=== PATIENT | female | born 1970 | race Caucasian/White ===

== ENCOUNTER 2017-11-13 12:45 | Emergency (ER) | payer MEDICAID, SELFPAY ==
[2017-11-13 12:46] VITALS: BP 159/103; PULSE 72; RESP 18; TEMP 36.9; O2SAT 99; BMI 27.4
--- NOTE | 2017-11-13 12:51 | [facility].EDWEAK ---
ED Disposition Clinical Impression: Radiculopathy of cervical spine Disposition: Home, Self-Care Condition on Discharge: Good Instructions: DI for Acute Pain -- Adult Additional Instructions: Naproxen, see Reny this week for follow up Prescriptions: Naproxen [EC-Naprosyn] 500 mg PO BID PRN #20 tablet.dr SOLORZANO Reason: Pain Per Pt (Scientific Artist Use Only) Referrals: Provider,Referral, MD [Primary Care Provider] - Reny Corado PA [Physician Acid Changer] - Time of Disposition: 14:48 - Critical Care Critical Care Time: No Attestation: On , the high probability of a clinically significant, sudden or life threatening deterioration of the following system(s) required my full and direct attention, intervention and personal management. The time I documented below is in addition to time spent performing reported procedures but includes the following listed in this critical care notation. Medical Decision Making Vital Signs: 11/13/17 12:46 Temperature 98.4 F Temperature Source Oral Pulse Rate [Right Brachial] 72 Respiratory Rate 18 Blood Pressure [Right Arm] 159/103 Blood Pressure Mean [Right Arm] 121 Blood Pressure Source [Right Arm] Automatic Cuff Blood Pressure Position [Right Arm] Sitting 02 Sat by Pulse Oximetry 99 Oxygen Delivery Method Room Air - CT Data CT Scan: Head, C-Spine Time Received: 14:[address] Reviewed: Yes: I have reviewed the patient's CT results Preliminary Findings: Normal/NAD - Dre Inquiry Pt receiving controlled substance: No Weakness HPI - General Stated complaint: L hand pain and numbness Time Seen by Provider: 11/13/17 12:50 Mode of Arrival: EMS Source of Information: Patient, EMS Limitations: No Limitations - History of Present Illness HPI Narrative: Pt states she awakened about eight days ago and noted that she had a numb left wrist and thumb, and couldn't use her thumb well. Her symptoms predate starting her new job at [employer], but seem to be worse w/ repetitive motion. She denies trauma; denies cephalgia; no other joint pain; no chest pain; no syncope; no fever; no discoloration of limb; no prior hx of any joint or neck issues. Onset (ago): week(s) Duration: constant Location: LUE, left hand Severity: moderate Quality: numbness Relieving factors: none Exacerbating factors: movement Associated symptoms: denies other symptoms - Related Data Previous Rx's Medication Instructions Recorded Naproxen [EC-Naprosyn] 500 mg PO BID PRN #20 tablet. 11/13/17 Allergies Allergy/AdvReac Type Severity Reaction Status Date / Time No Known Allergies Allergy Verified 11/13/17 12:53 [facility] History I have reviewed the patient's past medical history: Yes ROS Obtained: Yes All systems reviewed & no additional complaints Physical Exam - General General appearance: alert, in no apparent distress - Head Head exam: atraumatic, normocephalic, normal inspection - Eye Eye exam: Present: normal appearance, PERRL, EOMI - ENT ENT exam: Present: normal exam - Neck Neck exam: Present: normal inspection, full ROM, trachea midline, tenderness (no vascular change with rotation of head to left or to right; nontender neck). Absent: meningismus, lymphadenopathy - Respiratory Respiratory exam: Present: normal lung sounds bilaterally. Absent: respiratory distress - Cardiovascular Cardiovascular exam: Present: regular rate, normal rhythm. Absent: JVD - Extremities Exam Extremities exam: Present: normal inspection, normal capillary refill. Absent: tenderness, joint swelling - Expanded Upper Extremity Exam Left Hand L/R front image: 1 - other (numb) Hand L/R back image: 1 - numbness with wrist drop, unable to move thumb well w/ adduction or abduction; no discoloration of limb; brisk CR throughout all digits; good fl
--- NOTE | 2017-11-13 12:52 | CT_ITS ---
CT head/brain wo con Ordering Physician: iY Light MD Patient Age: 47 years: Female HISTORY: ITS.REASON: LUE numbness, wrist drop x 7-8 days Left upper terminate numbness wrist drop. 8 days. TECHNIQUE: Routine axial CT head without contrast. Brain and bone windows performed and reviewed. COMPARISON :None FINDINGS Brain appears within normal limits with no acute intracranial findings. No hemorrhage. No mass. No mass effect. No subdural or extra-axial collections. The ventricles appear normal. Basal cisterns clear. The posterior fossa unremarkable. Bone windows. Most likely hyperostosis frontalis interna accounts for the irregular and focal areas lobulated osseous density extending from the internal margin the frontal bone. Unlikely early tiny meningioma or other process. These are seen axial slice 27 to the right and to left of midline on axial slice 18. The paranasal sinuses are well-developed and fairly clear. With only minor mucosal thickening anterior right ethmoid air cells. Deviation nasal septum noted convex the left. Orbits unremarkable. Mastoid air cells well-developed and clear. Middle ear clear. IACs unremarkable. IMPRESSION: No acute intracranial findings. Brain with normal limits . Benign hyperostosis frontalis interna accounts for areas of slight osseous prominence along the inner table skull
--- NOTE | 2017-11-13 12:53 | CT_ITS ---
CT cervical spine wo con Ordering Physician: Yi Light MD Patient Age: 47 years: Female HISTORY: ITS.REASON: LUE wrist drop, L radial nerve numbness x one week Left upper extremity new symptoms TECHNIQUE: Thin section helical axial CT acquisition with subsequent axial, sagittal and coronal reconstructions on CT workstation. COMPARISON :No previous FINDINGS . The cervical vertebral bodies are intact. No fracture nor subluxation Nonspecific straightening C-spine most likely positional although can reflect pain or muscle spasm.. Prevertebral soft tissues appear normal. Facets appear intact with normal relationships.. There is no fracture nor subluxation.. . C5-C6. Mild very early degenerative changes and spondylosis with minor uncovertebral joint hypertrophy and spurring to the left slightly indenting the anterior left aspect thecal sac.. Also minor left foraminal and recess encroachment. Findings are unimpressive but noted.. A CT is useful to evaluate osseous structures. MR is best evaluate for disc protrusions and disc abnormalities and is to be considered if symptoms persists or progress . Patient edentulous.. Soft tissues neck unremarkable. . Apices the lungs clear. Mild chronic lung changes 2 small indeterminate lung nodules noted: There is a small 3.5 mm nodule RUL axial slice 92. & A small 4 mm nodule posterior right apex RUL axial slice 88. Nonspecific. Suggest follow-up chest film 2 view. A follow-up CT chest in 3-4 months to further right these specific features suggested.. These are nonspecific nodule but statistically more likely benign ==== IMPRESSION: 1. Cervical spine intact no acute findings No prominent findings. 2 \ .. Only tiny early posterior spurring leftward at C5-C6.. Only trace indents thecal sac to the left. With Only minor encroachment left foramen.. Minor observation questionable significance but noted. (CT is most useful to evaluate osseous structures. MR is best evaluate for disc abnormalities and is to be considered if symptoms persists or progress ) 3. Incidental note 2 small nonspecific nodules right upper lobe, apex. Largest focal 4 mm.. Warrant follow-up
[2017-11-13 15:13] VITALS: BP 123/105; PULSE 71; RESP 18; TEMP 36.7; O2SAT 99
== END 2017-11-13 15:12 | disposition home or self-care (01) ==
PROVIDERS: Emergency Provider Emergency Medicine
DX: M54.12 Radiculopathy, cervical region (principal); M25.541 Pain in joints of right hand
CPT/HCPCS: 70450; 72125; 99282

== ENCOUNTER → 2017-12-28 10:37 | Outpatient (CLI) | payer MEDICAID, SELFPAY ==
--- NOTE | 2017-12-28 10:38 | MR_ITS ---
MR cervical spine wo con, MR 3-d myelogram/MRCP HISTORY: PT states LT wrist drop x2 months. neck pain, left upper extremity numbness. ITS.REASON: left wrist drop, LUE numbness ORDERING PHYSICIAN: MATT Castillo PATIENT AGE: 47 years COMPARISON: CT Cervical 11/13/17 TECHNIQUE: Standard multiplanar multiecho sequences are performed without contrast. 3-D MIP and myelographic images are also rendered and reviewed FINDINGS: There is normal alignment. Craniocervical junction has an unremarkable appearance. C2-C3: Unremarkable. C3-C4: Minimal bulging disc with minimal central disc protrusion versus prominent posterior longitudinal ligament without impingement. C4-C5: Unremarkable. C5-C6: There is mild degenerative disc disease with small left uncovertebral disc osteophyte complex causing mild to moderate foraminal narrowing on the left. C6-C7: There is a small central disc herniation with inferior extrusion. This is without mass effect upon the cord. C7-T1: Unremarkable. IMPRESSION: 1. There is a small central disc herniation with inferior extrusion at C6-C7 without mass effect. 2. Small left uncovertebral disc osteophyte complex causing [id number] left foraminal narrowing at C5-C6. Mild degenerative disc disease at C5-C6 3. Small central disc protrusion versus prominent posterior longitudinal ligament C3-C4 IMPRESSION:
== END ==
PROVIDERS: PCP Physician Assistant; Visit Provider Physician Assistant
DX: M54.12 Radiculopathy, cervical region (principal); R20.0 Anesthesia of skin; M21.332 Wrist drop, left wrist
CPT/HCPCS: 72141; 76376

== ENCOUNTER → 2018-01-01 12:31 | Outpatient (POV) | payer MEDICAID, SELFPAY | PROVIDERS: PCP Physician Assistant; Visit Provider Specialist | DX: M21.332 Wrist drop, left wrist (principal); R20.0 Anesthesia of skin; M54.12 Radiculopathy, cervical region | CPT/HCPCS: 95886; 95909 ==

== ENCOUNTER → 2018-01-03 08:49 | Outpatient (REF) | payer MEDICAID, SELFPAY ==
[2018-01-03 14:05] LABS: Alanine Aminotransferase 31 U/L (12-78); Albumin Level 3.9 gm/dL (3.4-5.0); Albumin/Globulin Ratio 1.2 (1.1-1.8); Alkaline Phosphatase 61 U/L (46-116); Anion Gap 12.5 mEq/L (5-15); Aspartate Amino Transferase 24 U/L (15-37); Bilirubin,Total 0.3 mg/dL (0.2-1.0); Blood Urea Nitrogen 12 mg/dL (7-18); Calcium 9.2 mg/dL (8.5-10.1); Carbon Dioxide 28 mmol/L (21.0-32.0); Chloride 102 mmol/L (98-107); Chol/HDL Ratio 3.2 (1-3.5); Cholesterol 154 mg/dL (140-200); Creatinine,Serum 0.86 mg/dL (0.55-1.02); Estimated Glomerular Filt Rate 71 ml/min (>60); GFR (African American) 86 ML/MIN (>60); Globulin 3.3 gm/dl (1.3-3.2); Glucose 111 mg/dL (74-106); HDL Cholesterol 48 mg/dL (29-89); LDL Cholesterol 87 mg/dL (0-130); Potassium 3.5 mmoL/L (3.5-5.1); Sodium 139 mmol/L (136-145); T4 (Thyroxine) 12.2 ug/dl (4.7-13.3); Thyroid Stimulating Hormone 2.23 uIU/ml (0.358-3.740); Total Protein,Serum 7.2 gm/dL (6.4-8.2); Triglycerides 95 mg/dL (30-200); VLDL Cholesterol 19 mg/dL (0-40)
[2018-01-03 14:49] LABS: Basophils % 0.3 % (0.1-2.0); Eosinophils # 0.2 K/mm3 (0.0-0.4); Hematocrit 39.9 % (37.0-47.0); Hemoglobin 12.8 g/dL (12.2-16.2); Lymphocytes # 1.3 K/mm3 (0.7-4.5); Lymphocytes % 16.7 K/mm3 (10-50); Mean Corpuscular HGB Conc 32.2 g/dL (31.8-35.4); Mean Corpuscular Hemoglobin 28.1 pg (27.0-31.2); Mean Corpuscular Volume 87.2 fl (81-99); Mean Platelet Volume 7.8 fl (7.4-10.4); Monocytes # 0.5 K/mm3 (0.1-1.0); Monocytes % 6.9 % (1.7-9.3); Neutrophils # 5.8 K/mm3 (1.8-7.8); Neutrophils % 73.1 % (37.0-80.0); Platelet Count 252 K/mm3 (142-424); Red Blood Count 4.57 M/mm3 (4.20-5.40); White Blood Count 7.9 K/mm3 (4.8-10.8)
[2018-01-04 14:50] LABS: Vitamin D 25 Hydroxy 20.8 ng/mL (30.0-100.0)
== END ==
LOC: LAB 08:49
PROVIDERS: Visit Provider Physician Assistant
DX: R55 Syncope and collapse (principal); R63.1 Polydipsia
CPT/HCPCS: 80053; 80061; 82652; 83036; 84436; 84443; 85025